=== PATIENT | male | born 1970 | race Caucasian/White ===

== ENCOUNTER 2021-08-22 10:45 | Emergency (ER) | payer SELFPAY ==
--- NOTE | 2021-08-22 10:55 | PCM.EKG ---
#1 Interpretation EKG Interpretation Comments: EKG performed 08/22/2021 at 10:49 AM shows atrial fibrillation with a ventricular rate of 140. The QT duration is 447 and axis is -4. New T wave inversions in the inferior leads as well as some of the precordial leads with ST depression in the lateral precordial leads. There is no prior for comparison. Impression there may be ischemia and it may be rate related no obvious acute injury.
[2021-08-22] MEDS ORDERED: Aspirin 81 MG Tab.Chew PO ONE (10:56)
[2021-08-22] MEDS ORDERED: Sodium Chloride 0.9% 1,000 ML IV ONE (10:56)
[2021-08-22] MEDS ORDERED: Diltiazem 25 MG/5 ML SDV IVPUSH ONE ×2 (10:57→13:18)
--- NOTE | 2021-08-22 11:03 | EDM.PDOC ---
<Harpal Cohn - Last Filed: 08/22/21 16:21> ED HPI GENERAL MEDICAL PROBLEM - General Chief Complaint: Chest Pain Stated Complaint: TROUBLE BREATHING,ELEVATED BLOOD PRESSURE Time Seen by Provider: 08/22/21 10:49 - Related Data Allergies Allergy/AdvReac Type Severity Reaction Status Date / Time No Known Allergies Allergy Verified 08/22/21 11:10 Home Meds: Home Meds . [No Known Home Meds] 08/22/21 [History] Course - Re-Assessments/Exams Free Text/Narrative Re-Assessment/Exam: 08/22/21 16:22 I discussed this case with Dr. Ivey in [facility] and he agreed to accept the patient. We will continue the BiPAP because this seems to be helping his respiratory status and will reduce his preload and assist in the management of his pulmonary edema. Because of that we have to 5 the patient. Departure - Departure Disposition: DC/Tfer to Acute Hospital 02 Condition: Fair Clinical Impression: Hypertensive emergency, Atrial fibrillation with rapid ventricular response, Heart failure, Chest pain, Acute kidney injury - Discharge Information Referrals: PCP,None [Primary Care Provider] - Forms: ED Department Discharge <Suzy Richardson - Last Filed: 08/22/21 18:58> ED HPI GENERAL MEDICAL PROBLEM - General Source of Information: Reports: Patient History Limitations: Reports: No Limitations - History of Present Illness INITIAL COMMENTS - FREE TEXT/NARRATIVE: HISTORY AND PHYSICAL: History of present illness: Patient is a 50-year-old male who presents emergency room today with concern of chest pain and fast heart rate that has been constant for 3 weeks. Patient states that he began starting more short of breath over the past several days so came here to the emergency room. Patient states that he has a history of hypertension but states that he has been unable to afford his hypertensive medication so has not been taking these since he was younger. Patient denies fever, chills, or cough. Denies headache, neck stiff ness, change in vision, syncope, or near syncope. Denies nausea, vomiting, abdominal pain, diarrhea, constipation, or dysuria. Has not noted any blood in urine or stool. Patient has been eating and drinking appropriately. Review of systems: As per history of present illness and below otherwise all systems reviewed and negative. Past medical history: As per history of present illness and as reviewed below otherwise noncontributory. Surgical history: As per history of present illness and as reviewed below otherwise noncontributory. Social history: See social history for further information Family history: As per history of present illness and as reviewed below otherwise noncontributory. Physical exam: General: Patient is alert, oriented, and in mild respiratory distress. Patient sitting comfortably on exam table. Patient is tachycardic 140s on exam, significantly hypertensive with blood pressure 220/120, RR26 and 95% on RA. HEENT: Atraumatic, normocephalic, pupils equal and reactive bilaterally, negative for conjunctival pallor or scleral icterus, mucous membranes moist, throat clear, neck supple, nontender, trachea midline. No drooling or trismus noted. No meningeal signs. No hot potato voice noted. Lungs: Fine crackles to auscultation throughout all lung breaux, breath sounds equal bilaterally, chest nontender. Patient speaking 5 words with mild breathlessness, no wheezing or stridor, some accessory muscle use with some evidence of mild respiratory distress. Heart: Distant heart sounds. S1S2, regular rate and rhythm without overt murmur Abdomen: Soft, nondistended, nontender. Negative for masses or hepatosplenomegaly. Negative for costovertebral tenderness. Pelvis: Stable nontender. Genitourinary: Deferred. Rectal: Deferred. Skin: Intact, warm, dry. No lesions or rashes noted. Extremities: 2+ pitting edema bilateral lower extremities. Atraumatic, negative for cords or calf pain. Neurovascular unremarkable. Neuro: Awake, alert, oriented. Cranial nerves II through XII unremarkable. Cerebellum unremarkable. Motor and sensory unremarkable throughout. Exam nonfocal. Medical Decision Making: Dr. Cohn directly involved in patient care. Patient is a 50-year-old male with a history of hypertension, who presents emergency room today with concern of chest pain, palpitations x3 weeks with shortness of breath over the past several days. Upon arrival to the ED, patient is tachycardic 140s on exam, he is significantly hypertensive 220s over 120, tachypneic with 26 but is 95% on room air. He is able to speak 5 word sentences with minimal breathlessness but does have some accessory muscle use and early evidence of mild respiratory distress. Patient does have 2+ bilateral pitting edema of the lower extremities. See Dr. Cohn's dictation for specific EKG interpretation. Otherwise, atrial fibrillation with a rapid ventricular rate of 140. No STEMI or other acute changes. Patient does not have any prior EKG for comparison, but patient has not been aware of ever having atrial fibrillation in the past. Will provide a dose of Cardizem and reassess patient while obtaining cardiac evaluation per Dr. Cohn. Quick bedside chest x-ray shows that the heart is significantly enlarged. Quick bedside ultrasound shows small amount of fluid in the pericardial sac with dilated ventricles with poor wall motion/contractility-verified by myself and Dr. Cohn who is at bedside and directly involved in patient care. When patient significant hypertensive, do feel that this could be related to hypertensive emergency with end-stage evidence of congestive heart failure of the heart. For a reduction in SBP, goal 1HR BP systolic 168. Patient is placed in an upright position and BiPAP initiated to decrease preload. Will obtain further cardiac evaluation and closely monitor patient. Approximately 20 minutes following IV Cardizem that was given, patient does have a decrease in his blood pressure to 150s over 100s, his heart rate improves to 78 bpm, and patient does have improvement of his respiratory rate to about 20-22 and is 92% on BiPAP. Patient was then given p.o. Cardizem. CBC mild derangements unremarkable. D-dimer is elevated at 2.52 so will obtain angiography chest. CMP does show creatinine of 1.5 and BUN of 20 which are elevated, concerning for acute kidney injury. Total bilirubin also elevated at 2.6. Initial troponin is elevated at 0.423, BNP also severely elevated at 1349. TSH elevation at 4.59 with free T4 within normal limits. Covid and influenza negative. Angiography of chest is negative for pulmonary embolism. Evidence CHF manifeste d as moderate cardiomegaly, pulmonary venous congestion, evidence of interstitial edema and right-sided pleural effusion of moderate size. 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 Small pericardial effusion with sleeve of pericardium extending superiorly along the ascending aorta. Repeat troponin has decreased 2.392. I do suspect that patient is having demand ischemia due to prolonged hypertension, A. fib with RVR as he has been having this ongoing for 3 weeks and severe congestive heart failure. Close monitoring of patient, his blood pressure is starting to come back up and was consistently 160s over 100s but is now about 170s over 136. Will also give a dose of enalaprilat and nitro. Patient does respond well to these medications and is back down to 166/110. I did call and speak to the hospitalist on-call, Dr. Burrell, and thoroughly discussed patient's case. He recommends patient be admitted to the ICU. However, our facility does not have any ICU capability at this time and does not see any ICU capability for an unforeseeable amount of time. Due to status of the emergency room and my attention drawn into another critical room, Dr. Cohn started transfer process for patient. [facility] Dr. Leonardo accepting of patient. At this time, there is not any EMS capability for an unforeseeable amount of time to transfer patient patient is on BiPAP due to significant congestive heart failure and pulmonary edema/fluid overload. Due to this, will fly patient. Flight is at bedside and patient's blood pressure is starting to increase again 176/110 and heart rate 95. His respiratory rate remains 22 with fight at bedside. I did discuss giving another dose of nitro for patient's blood pressure with a systolic goal of 168. EMS will give nitro in route as needed for blood pressure. Patient transferred to flight in stable but critical condition. Diagnostics: EKG, CBC, CMP, chest x-ray 1 view, troponin, D-dimer, COVID-19/influenza, BNP, TSH Therapeutics: Normal saline, aspirin, Cardizem, BIPAP, Nitro SL, Enalaprilat Impression: Hypertensive Emergency New onset congestive heart failure New onset atrial fibrillation with RVR Acute kidney injury Plan: Transfer to [facility] to Dr. Leonardo via flight Critical care time is exclusive of billable procedures and the time to perform these procedures. Critical care time was used to prevent vital system organ failure and deterioration. Critical care time includes bedside management and high-complexity decision making requiring my highest level of mental preparedness and attention. This includes reviewing the patient's chart and prior medical records, ordering and reviewing interpreting laboratory studies and imaging results, interpretation of vital signs and EKG, pulse oximetry, and discussion with the admitting team along with flight and nursing staff. Patient presented with multiple critical lab values that required immediate intervention, acute hypertensive emergency with evidence of end organ damage requiring Bipap and immediate transfer for continuation of treatment CC Time: 90 minutes Definitive disposition and diagnosis as appropriate pending reevaluation and review of above. ED ROS GENERAL - Review of Systems Review Of Systems: Comprehensive ROS is negative, except as noted in HPI. ED EXAM, GENERAL - Physical Exam Exam: See Below (see dictation) Course - Vital Signs Last Recorded V/S: Last Vital Signs Temp 98.1 F 08/22/21 17:31 Pulse 95 08/22/21 17:31 Resp 22 H 08/22/21 17:31 BP 176/110 H 08/22/21 17:31 Pulse Ox 99 08/22/21 17:31 - Orders/Labs/Meds Orders: Active Orders 24 hr Category Date Time Status COVID-19/FLU A+B [MOLEC] Stat Lab 08/22/21 10:55 Results Labs: Laboratory Tests 08/22/21 08/22/21 08/22/21 Range/Units 10:50 10:50 10:50 WBC 7.54 (4.0-11.0) K/uL RBC 4.92 (4.50-5.90) M/uL Hgb 15.0 (13.0-17.0) g/dL Hct 45.5 (38.0-50.0) % MCV 92.5 (80.0-98.0) fL MCH 30.5 (27.0-32.0) pg MCHC 33.0 (31.0-37.0) g/dL RDW Std Deviation 55.0 (28.0-62.0) fl RDW Coeff of Ember 16 H (11.0-15.0) % Plt Count 238 (150-400) K/uL MPV 12.10 H (7.40-12.00) fL Neut % (Auto) 77.1 (48.0-80.0) % Lymph % (Auto) 12.3 L (16.0-40.0) % [place] % (Auto) 9.2 (0.0-15.0) % Eos % (Auto) 1.1 (0.0-7.0) % Baso % (Auto) 0.3 (0.0-1.5) % Neut # (Auto) 5.8 H (1.4-5.7) K/uL Lymph # (Auto) 0.9 (0.6-2.4) K/uL [place] # (Auto) 0.7 (0.0-0.8) K/uL Eos # (Auto) 0.1 (0.0-0.7) K/uL Baso # (Auto) 0.0 (0.0-0.1) K/uL Nucleated RBC % 0.0 /100WBC Nucleated RBCs # 0 K/uL D-Dimer, Quantitative 2.52 H (0.0-0.50) mg/L FEU Sodium 143 (136-148) mmol/L Potassium 3.6 (3.5-5.1) mmol/L Chloride 106 (98-107) mmol/L Carbon Dioxide 21.4 (21.0-32.0) mmol/L BUN 20 H (7.0-18.0) mg/dL Creatinine 1.5 H (0.8-1.3) mg/dL Est Cr Clr Drug Dosing 66.10 mL/min Estimated GFR (MDRD) 49.9 ml/min Glucose 133 H (74-106) mg/dL Calcium 8.8 (8.5-10.1) mg/dL Phosphorus 3.9 (2.6-4.7) mg/dL Magnesium 1.9 (1.8-2.4) mg/dL Total Bilirubin 2.6 H (0.2-1.0) mg/dL AST 34 (15-37) IU/L ALT 42 (14-63) IU/L Alkaline Phosphatase 52 (46-116) U/L Troponin I 0.423 H* (0.000-0.056) ng/mL B-Natriuretic Peptide (<100) PG/ML Total Protein 7.3 (6.4-8.2) g/dL Albumin 3.3 L (3.4-5.0) g/dL Globulin 4.0 (2.6-4.0) g/dL Albumin/Globulin Ratio 0.8 L (0.9-1.6) Lipase 145 (73-393) U/L Free T4 1.32 (0.76-1.46) ng/dL TSH, Ultra Sensitive 4.59 H (0.36-3.74) uIU/mL SARS-CoV-2 RNA (MINDY) (NEGATIVE) 11/23/21 11/23/21 11/23/21 Range/Units 10:50 10:55 13:30 WBC (4.0-11.0) K/uL RBC (4.50-5.90) M/uL Hgb (13.0-17.0) g/dL Hct (38.0-50.0) % MCV (80.0-98.0) fL MCH (27.0-32.0) pg MCHC (31.0-37.0) g/dL RDW Std Deviation (28.0-62.0) fl RDW Coeff of Ember (11.0-15.0) % Plt Count (150-400) K/uL MPV (7.40-12.00) fL Neut % (Auto) (48.0-80.0) % Lymph % (Auto) (16.0-40.0) % [place] % (Auto) (0.0-15.0) % Eos % (Auto) (0.0-7.0) % Baso % (Auto) (0.0-1.5) % Neut # (Auto) (1.4-5.7) K/uL Lymph # (Auto) (0.6-2.4) K/uL [place] # (Auto) (0.0-0.8) K/uL Eos # (Auto) (0.0-0.7) K/uL Baso # (Auto) (0.0-0.1) K/uL Nucleated RBC % /100WBC Nucleated RBCs # K/uL D-Dimer, Quantitative (0.0-0.50) mg/L FEU Sodium (136-148) mmol/L Potassium (3.5-5.1) mmol/L Chloride (98-107) mmol/L Carbon Dioxide (21.0-32.0) mmol/L BUN (7.0-18.0) mg/dL Creatinine (0.8-1.3) mg/dL Est Cr Clr Drug Dosing mL/min Estimated GFR (MDRD) ml/min Glucose (74-106) mg/dL Calcium (8.5-10.1) mg/dL Phosphorus (2.6-4.7) mg/dL Magnesium (1.8-2.4) mg/dL Total Bilirubin (0.2-1.0) mg/dL AST (15-37) IU/L ALT (14-63) IU/L Alkaline Phosphatase (46-116) U/L Troponin I 0.392 H* (0.000-0.056) ng/mL B-Natriuretic Peptide 1349 H (<100) PG/ML Total Protein (6.4-8.2) g/dL Albumin (3.4-5.0) g/dL Globulin (2.6-4.0) g/dL Albumin/Globulin Ratio (0.9-1.6) Lipase (73-393) U/L Free T4 (0.76-1.46) ng/dL TSH, Ultra Sensitive (0.36-3.74) uIU/mL SARS-CoV-2 RNA (MINDY) NEGATIVE (NEGATIVE) Meds: Medications Discontinued Medications Generic Name Dose Route Start Last Admin Trade Name Freq PRN Reason Stop Dose Admin Aspirin 324 mg 08/22/21 10:56 08/22/21 11:12 Aspirin 81 Mg Tab.Chew PO 08/22/21 10:57 324 mg ONETIME ONE Administration Diltiazem HCl 20 mg 08/22/21 10:57 08/22/21 11:14 Diltiazem 25 Mg/5 Ml Sdv IVPUSH 08/22/21 10:58 20 mg ONETIME ONE Administration Diltiazem HCl 10 mg 08/22/21 13:18 08/22/21 13:28 Diltiazem 25 Mg/5 Ml Sdv IVPUSH 08/22/21 13:19 10 mg ONETIME ONE Administration Diltiazem HCl 60 mg 08/22/21 13:19 08/22/21 13:45 Diltiazem Ir 60 Mg Tab PO 08/22/21 13:20 60 mg ONETIME ONE Administration Enalaprilat 0.55 mg 08/22/21 14:53 08/22/21 15:01 Enalaprilat 1.25 Mg/Ml Sdv IVPUSH 08/22/21 14:54 0.55 mg ONETIME ONE Administration Furosemide 20 mg 08/22/21 12:31 08/22/21 13:27 Furosemide 40 Mg/4 Ml Vial IVPUSH 08/22/21 12:32 20 mg NOW ONE Administration Sodium Chloride 1,000 mls @ 999 mls/hr 08/22/21 10:56 08/22/21 11:14 Normal Saline IV 08/22/21 11:56 Not Given BOLUS ONE Iopamidol 100 ml 08/22/21 13:16 08/22/21 13:17 Iopamidol 755 Mg/Ml 500 Ml Multipack Bottle IVPUSH 08/22/21 13:17 100 ml ONETIME STA Administration Nitroglycerin 0.4 mg 08/22/21 14:45 08/22/21 14:53 Nitroglycerin 0.4 Mg Tab.Sl SL 08/22/21 14:46 0.4 mg ONETIME ONE Administration Departure - Departure Time of Disposition: 18:58 Sepsis Event Note (ED) - Focused Exam Vital Signs: Vital Signs Temp Temp Pulse Resp BP BP Pulse Ox 08/22/21 17:31 98.1 F 95 22 H 176/110 H 99 08/22/21 17:00 123 H 176/110 H 08/22/21 16:26 96.8 F L 96.7 F L 95 22 H 166/110 H 99 08/22/21 15:07 108 H 22 H 174/100 H 98 08/22/21 15:01 189/133 H 08/22/21 14:53 189/133 H 08/22/21 14:00 109 H 22 H 171/136 H 99 08/22/21 11:44 102 H 31 H 166/110 H 08/22/21 11:39 78 22 H 151/101 H 92 L 08/22/21 11:18 78 22 H 151/101 H 92 L 08/22/21 11:00 97.5 F 144 H 32 H 181/139 H - My Orders Last 24 Hours: My Active Orders 08/22/21 10:55 COVID-19/FLU A+B [MOLEC] Stat - Assessment/Plan Last 24 Hours: My Active Orders 08/22/21 10:55 COVID-19/FLU A+B [MOLEC] Stat
--- NOTE | 2021-08-22 11:39 | CR ---
Indication: New onset atrial fibrillation with RVR. Technique: Chest 1 view. Comparison: None. Findings/Impression: Cardiovascular and mediastinum: Cardiomegaly present. Normal pulmonary vasculature. Lungs and pleural space: Lungs are clear. No sign of infiltrate or mass. No sign of pleural effusion. No pneumothorax. Bones and soft tissues: No acute findings. Dictated by Blaine Abdullahi MD @ 08/22/2021 11:37:49 AM (Electronically Signed)
[2021-08-22 11:56] LABS: CARBON DIOXIDE,CO2 21.4 mmol/L (21.0-32.0); POTASSIUM,K 3.6 mmol/L (3.5-5.1)
[2021-08-22 12:19] LABS: CORONAVIRUS COVID-19 NAA NEGATIVE (NEGATIVE)
[2021-08-22] MEDS ORDERED: Furosemide 40 MG/4 ML VIAL IVPUSH ONE (12:31)
[2021-08-22] MEDS ORDERED: Iopamidol 755 MG/ML 500 ML Multipack Bottle IVPUSH STA (13:16)
[2021-08-22] MEDS ORDERED: Diltiazem IR 60 MG Tab PO ONE (13:19)
--- NOTE | 2021-08-22 14:06 | CT ---
INDICATION: New onset CHF. SOB. Elevated D-dimer. Rule out pulmonary embolism. TECHNIQUE: Volumetric helical scanning of the thorax was performed during infusion of 100 cc of Isovue 370 contrast material IV, timing optimized for pulmonary arterial opacification. Coronal and sagittal reconstructions were obtained. COMPARISON: Today`s chest x-ray. FINDINGS: The images are of acceptable quality and demonstrate uniform vascular enhancement within the pulmonary arteries. No pulmonary arterial filling defect is identified. The heart is moderately enlarged. A small pericardial effusion is demonstrated with pericardial fluid filling a sleeve a pericardium along the right side of the ascending aorta. There is fusiform aneurysmal enlargement of the aortic arch and descending aorta. The distal aortic arch measures up to 5.0 cm in maximum diameter on the coronal images (image 116 of series 406). The descending aorta is tortuous and measures up to 3.9 cm in diameter on image 124 of series 406. An aberrant right subclavian artery with aneurysmal origin is demonstrated. Proximally, this vessel measures up to 2.7 cm in diameter. A right-sided pleural effusion of moderate size is demonstrated. No left-sided effusion is evident. The lungs are low in volume with ground-glass opacity throughout both lungs and passive atelectasis in the right lower lobe due to the effusion. The pulmonary veins do appear to be congested. Thickening of the fissures is demonstrated along with bronchial wall thickening in early B-lines in the bases. No mediastinal or hilar lymphadenopathy is demonstrated. Images of the upper abdomen are unremarkable. IMPRESSION: 1. Negative for pulmonary embolism. 2. Evidence CHF manifested as moderate cardiomegaly, pulmonary venous congestion, evidence of interstitial edema and a right-sided pleural effusion of moderate size. 3. 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 4. Aberrant right subclavian artery with aneurysmal proximal segment measuring up to 2.7 cm in diameter. 5. Small pericardial effusion with sleeve of pericardium extending superiorly along the ascending aorta. Please note that all CT scans at this facility use dose modulation, iterative reconstruction, and/or weight-based dosing when appropriate to reduce radiation dose to as low as reasonably achievable. Dictated by Hussein Navarro MD @ 08/22/2021 2:05:53 PM (Electronically Signed)
[2021-08-22] MEDS ORDERED: Nitroglycerin 0.4 MG Tab.SL SL ONE (14:45)
[2021-08-22] MEDS ORDERED: Enalaprilat 1.25 MG/ML SDV IVPUSH ONE (14:53)
[2021-08-22 20:07] LABS: INFLUENZA A NAA NEGATIVE (NEGATIVE); INFLUENZA B NAA NEGATIVE (NEGATIVE)
== END 2021-08-22 17:30 ==
LOC: MW.ED 10:45
DX: I16.1 Hypertensive emergency (principal); I11.0 Hypertensive heart disease with heart failure; I50.9 Heart failure, unspecified; I48.91 Unspecified atrial fibrillation; N17.9 Acute kidney failure, unspecified; Z20.822 Contact with and (suspected) exposure to COVID-19
CPT/HCPCS: 0240U; 36415; 71045; 71275; 80053; 83690; 83735; 83880; 84100; 84439; 84443; 84484; 85025; 85379; 93005; 94660; 96374; 96375; 96376; 99291; 99292; A9270; J1940; J3490; Q9967